=== PATIENT | male | born 1945 | race American Indian/Alaskan Native ===

== ENCOUNTER 2018-09-05 12:57 | Inpatient (IN) | payer MEDICARE, OTHER ==
--- NOTE | 2018-09-05 13:36 | Anesthesia Consultation ---
Anesthesia Consult and Med Hx Date of service: 09/05/18 - Airway Anesthetic Teeth Evaluation: Good ROM Head & Neck: Adequate Mental/Hyoid Distance: Adequate Mallampati Class: Class II Intubation Access Assessment: Probably Good - Pulmonary Exam CTA: Yes - Cardiac Exam Anesthetic Concerns: slightly irregular heart rate with 2/6 systolic murmur. Pt states his blood pressure is prone to drop precipitously with BP meds. - Pre-Operative Health Status ASA Pre-Surgery Classification: ASA4 Proposed Anesthetic Plan: General - Pulmonary Hx Smoking: Yes (STOPPED 1973) Hx Sleep Apnea: No (EZ PRE SCREEN HIGH RISK) - Cardiovascular System Hx Hypertension: Yes (X 15 YRS) Hx Heart Murmur: Yes (2/6 systolic) Hx Peripheral Vascular Disease: Yes (? LEGS) - Endocrine Hx End Stage Renal Disease: Yes (Had vas cath dialysis 09/04/18) Hx Cirrhosis: Yes (7 YRS AGO- RESOLVED WITH MEDS (ALCOHOL INDUCED)) Hx Non-Insulin Dependent Diabetes: Yes (Mainly diet controlled. Ocassionally takes tradjenta.) - Hematic Hx Anemia: Yes - Other Systems Hx Alcohol Use: Yes (DRY X 10 YRS (HAS CIRRHOSIS))
--- NOTE | 2018-09-05 13:43 | Anesthesia Day of Surgery ---
Anesthesia Day of Surgery - Day of Surgery Patient Examined: Yes Patient H&P Reviewed: Yes Patient is NPO: Yes Beta Blockers: Yes (last dose 09/05/18)
--- NOTE | 2018-09-05 13:59 | Short Stay Summary ---
Short Stay Documentation Date of service: 09/12/18 - History H&P: obtained from office - Allergies and Medications Current Medications: Allergies tamsulosin [From Flomax] Allergy (Verified 08/29/18 17:57) Rash Home Medications Medication Instructions Recorded Confirmed Last Taken Type Bicalutamide [Casodex] 50 mg PO DAILY 08/29/18 08/29/18 Unknown History Hydralazine HCl 50 mg PO BID 08/29/18 08/29/18 Unknown History ISOSORBIDE MONOnitrate [Imdur ER] 30 mg PO DAILY 08/29/18 08/29/18 Unknown History Labetalol [Labetalol 100mg TAB] 100 mg PO BID 08/29/18 08/29/18 Unknown History Lanthanum Carbonate [Fosrenol] 500 mg PO TIDWM 08/29/18 08/29/18 Unknown History Linagliptin [Tradjenta] 5 mg PO PRN PRN 08/29/18 08/29/18 Unknown History Minoxidil [Loniten] 2.5 mg PO PRN PRN 08/29/18 08/29/18 Unknown History Active Medications Famotidine (Pepcid) 20 mg IV PREOP NR Stop: 09/05/18 23:59 Sodium Chloride (Nacl 0.9% 1000 Ml) 1,000 mls @ 100 mls/hr IV DIRECT TYLER - Brief post op/procedure progress note Date of procedure: 09/05/18 Pre-op diagnosis: Gross hematuria , h/o prostate ca Post-op diagnosis: same Anesthesia: GETA Surgeon: SAMANTHA ROSARIO Estimated blood loss: minimal Condition: stable - Hospital course Hospital course: orpacuhome - Disposition Condition at discharge: Good Disposition: DC-01 TO HOME OR SELFCARE Short Stay Discharge Plan Activity: advance as tolerated Diet: advance as tolerated Follow up with: SAMANTHA ROSARIO MD [Staff Physician] - 7 Days
[2018-09-05] MEDS ORDERED: PEPCID IV NR (14:00)
[2018-09-05] MEDS: NACL 0.9% 1000 ML 1,000 ML IV SCH (14:01)
[2018-09-05] MEDS ORDERED: ceFAZolin 2 GM in NACL 0.9% 100 ML IV SCH (14:15)
[2018-09-05] MEDS ORDERED: DIPRIVAN 10 MG/ML IV ONE (14:29)
[2018-09-05] MEDS ORDERED: SUBLIMAZE ONE ×2 (14:29→16:11)
[2018-09-05] MEDS ORDERED: AMIDATE IV ONE (14:43)
[2018-09-05] MEDS ORDERED: XYLOCAINE MPF 2% ONE (14:43)
[2018-09-05] MEDS ORDERED: NACL 0.9% 500 ML 500 ML IV ONE (15:11)
[2018-09-05] MEDS ORDERED: WATER FOR IRRIG STERILE IR ONE (15:45)
--- NOTE | 2018-09-05 15:59 | Post Operative Note ---
Pre-op diagnosis: Chronic Hematuria / RAD Cystits / CaP / ESRD / Anemia Post-op diagnosis: same Findings: mod diffuse erythema bladder throughtout Procedure: cysto rpg fulg bleeding Anesthesia: GETA Surgeon: SAMANTHA ROSARIO Estimated blood loss: minimal Pathology: list (bladder bx x3) Specimen disposition: to lab Condition: stable Disposition: PACU
[2018-09-05] MEDS ORDERED: PROVENTIL IH PRN (16:07)
[2018-09-05] MEDS ORDERED: ZOFRAN IV PRN ×4 (16:07→16:22)
[2018-09-05] MEDS ORDERED: SODIUM CHLORIDE FLUSH SYRINGE 10 ML IV PRN (16:07)
[2018-09-05] MEDS ORDERED: TYLENOL PO PRN (16:07)
--- NOTE | 2018-09-05 16:07 | History and Physical Report ---
History of Present Illness Chief complaint: Im doing OK. History of present illness: 73 YO Male with HTN, ESED on HD (M,W,F), Nicotine Dependence, DM, ETOH Cirrhosis, Anemia, PVD S/P Cystoscopy admitted directly at the request of Dr. Renee for postoperative anemia. Pt seen and evaluated upon arrival to his room. Pt resting comfortably in bed. Pt denies pain. Pt found to have ESRD complicated by blood loss anemia. Pt transfused with PRBC. Pt denies fever, chills, CP, Palpitations, NVD, Trauma, BRBPR, productive cough, or recent ill contacts. No reported nursing events. Past History Past Medical History: diabetes, ESRD, hypertension Past Surgical History: Other (Cysto) Social history: , lives with family, smoking Family history: diabetes, hypertension Medications and Allergies Allergies Allergy/AdvReac Type Severity Reaction Status Date / Time tamsulosin [From Flomax] Allergy Rash Verified 08/29/18 17:57 Home Medications Medication Instructions Recorded Confirmed Last Taken Type Bicalutamide [Casodex] 50 mg PO DAILY 08/29/18 09/06/18 09/04/18 09:30 History Hydralazine HCl 50 mg PO BID 08/29/18 09/06/18 09/04/18 21:30 History ISOSORBIDE MONOnitrate [Imdur ER] 30 mg PO DAILY 08/29/18 09/06/18 09/05/18 History 30mg Labetalol [Labetalol 100mg TAB] 100 mg PO BID 08/29/18 09/06/18 09/05/18 08:00 History Lanthanum Carbonate [Fosrenol] 500 mg PO TIDWM 08/29/18 09/06/18 09/05/18 History Linagliptin [Tradjenta] 5 mg PO PRN PRN 08/29/18 08/29/18 Unknown History Minoxidil [Loniten] 2.5 mg PO PRN PRN 08/29/18 09/06/18 07/26/18 History HYDROcodone/APAP 5-325 [[place] 1 each PO Q6HR PRN #25 tablet 09/06/18 Unknown Rx 5-325 mg TAB] Active Meds: Active Medications Famotidine (Pepcid) 20 mg IV PREOP NR Stop: 09/05/18 23:59 Last Admin: 09/05/18 14:01 Dose: 20 mg Documented by: Sodium Chloride (Nacl 0.9% 1000 Ml) 1,000 mls @ 100 mls/hr IV DIRECT TYLER Last Admin: 09/05/18 14:01 Dose: 100 mls/hr Documented by: Cefazolin Sodium 2 gm/ Sodium (Chloride) 100 mls @ 200 mls/hr IV PREOP TYLER; Protocol Review of Systems Constitutional: no weight loss, no weight gain, no fever, no chills Ears, nose, mouth and throat: no ear pain, no ear discharge, no tinnitis, no decreased hearing, no nose pain Cardiovascular: no chest pain, no orthopnea, no palpitations, no rapid/irregular heart beat, no edema Respiratory: no cough, no cough with sputum, no excessive sputum, no hemoptysis, no dyspnea on exertion Gastrointestinal: no nausea, no vomiting, no diarrhea, no constipation Genitourinary Male: no hematuria, no flank pain, no discharge, no urinary frequency, no urinary hesitancy Rectal: no pain, no incontinence, no bleeding Musculoskeletal: no neck stiffness, no neck pain, no shooting arm pain, no arm numbness/tingling, no low back pain, no shooting leg pain Integumentary: no rash, no pruritis, no redness, no sores, no wounds Neurological: no paralysis, no weakness, no parathesias, no numbness, no tingling Psychiatric: no anxiety, no memory loss, no change in sleep habits, no sleep disturbances, no insomnia, no hypersomnia, no hallucinations Endocrine: no cold intolerance, no heat intolerance, no polyphagia, no excessive thirst, no polydipsia, no polyuria, no nocturia Hematologic/Lymphatic: no easy bruising, no easy bleeding Allergic/Immunologic: no urticaria, no allergic rhinitis, no wheezing Exam - Constitutional Vitals: Temp Pulse Resp BP Pulse Ox 98.5 F 77 16 135/74 99 09/05/18 13:40 09/05/18 13:40 09/05/18 13:40 09/05/18 13:40 09/05/18 13:40 General appearance: Present: no acute distress, well-nourished - EENT Eyes: Present: PERRL ENT: hearing intact, clear oral mucosa - Neck Neck: Present: supple, normal ROM - Respiratory Respiratory effort: normal Respiratory: bilateral: CTA - Cardiovascular Heart Sounds: Present: S1 & S2. Absent: rub, click - Extremities Extremities: pulses symmetrical, No edema Peripheral Pulses: within normal limits - Abdominal General gastrointestinal: Present: soft, non-tender, non-distended, normal bowel sounds Male genitourinary: Present: normal - Integumentary Integumentary: Present: clear, warm, dry - Musculoskeletal Musculoskeletal: gait normal, strength equal bilaterally - Psychiatric Psychiatric: appropriate mood/affect, intact judgment & insight - Neurologic Neurologic: CNII-XII intact, moves all extremities Results - Labs CBC & Chem 7: 09/07/18 05:42 09/06/18 04:21 Labs: Abnormal lab results 09/05/18 09/05/18 09/05/18 Range/Units 14:01 14:21 14:30 POC Hgb 7.1 L (12-17) POC Hct 21 L (38-51) POC Potassium 3.4 L (3.5-4.9) POC BUN 30 H (8-26) mg/dl POC Glucose 111 H (70-105) Crossmatch See Detail Assessment and Plan - Patient Problems (1) ESRD (end stage renal disease) Current Visit: Yes Status: Acute Plan to address problem: Nephrology consulted as per consulting surgical team, dialysis as per renal team, strict I/o, daily weight, monitor uop, q shift, avoid nephrotoxic agents, (2) HTN (hypertension) Current Visit: Yes Status: Acute Qualifiers: Hypertension type: essential hypertension Qualified Code(s): I10 - Essential (primary) hypertension Plan to address problem: Monitor BP w shift, continue medical management (3) Diabetes Current Visit: Yes Status: Acute Plan to address problem: ADA diet, insulin, accu check (4) Anemia Current Visit: Yes Status: Acute Plan to address problem: Postop Anemia: PRBC transfusion, supportive care. (5) Nicotine dependence Current Visit: Yes Status: Acute Qualifiers: Nicotine product type: unspecified Plan to address problem: smoking cessation counseling, supportive care, (6) DVT prophylaxis Current Visit: Yes Status: Acute Plan to address problem: SCD to BLE while in bed, Pt ambulating
[2018-09-05] MEDS ORDERED: SUBLIMAZE IV PRN (16:11)
[2018-09-05] MEDS: SUBLIMAZE IV PRN ×2 (16:15→16:35)
[2018-09-05] MEDS ORDERED: NACL 0.9% 500 ML 500 ML ONE (16:56)
--- NOTE | 2018-09-05 17:51 | Post Anesthesia Evaluation ---
- Post Anesthesia Evaluation Patient Participated: Yes Airway Patent: Yes Stable Respiratory Function: Yes Nausea/Vomiting: No Temp > 96.8F: Yes Pain Manageable: Yes Adequeate Hydration: Yes Anesthesia Complications: No
[2018-09-05] MEDS: NACL 0.9% IR SCH ×3 (19:45→23:50)
[2018-09-06] MEDS: NACL 0.9% IR SCH ×3 (01:30→08:16)
[2018-09-06] MEDS: PERCOCET 5/325 PO PRN ×3 (01:30→20:36)
[2018-09-06 05:14] LABS: Basophils # (Auto) 0.1 K/mm3 (0.0-0.1); Basophils % (Auto) 1.2 % (0.0-1.8); Eosinophils # (Auto) 0.1 K/mm3 (0.0-0.4); Eosinophils % (Auto) 1.6 % (0.0-4.3); Hematocrit 25.4 % (35.5-45.6); Hemoglobin 8.5 gm/dl (11.8-15.2); Lymphocytes # (Auto) 0.8 K/mm3 (1.2-5.4); Lymphocytes % (Auto) 20.2 % (13.4-35.0); Mean Corpuscular HGB Conc 34 % (32-34); Mean Corpuscular Volume 88 fl (84-94); Monocytes # (Auto) 0.3 K/mm3 (0.0-0.8); Monocytes % (Auto) 7.9 % (0.0-7.3); Platelet Count 179 K/mm3 (140-440); Red Blood Count 2.88 M/mm3 (3.65-5.03); Red Cell Distribution Width 14.8 % (13.2-15.2)
[2018-09-06] MEDS: MORPHINE IV PRN (05:37)
[2018-09-06 05:40] LABS: Calcium 8.2 mg/dL (8.4-10.2)
--- NOTE | 2018-09-06 07:48 | Fluoroscopy Report ---
FLUOROSCOPY RETROGRADE UROGRAPHY: HISTORY: Gross hematuria. FINDINGS: Fluoroscopy was provided by radiology during retrograde urography by the urologist. 9 fluoroscopic images were captured. There is adequate filling of the ureters and intrarenal collecting systems with no filling defects or anatomic abnormalities identified. Bladder biopsy was performed per the operative notes. Please correlate with the procedural report if needed. IMPRESSION: Retrograde pyelograms within normal limits.
[2018-09-06] MEDS: SODIUM CHLORIDE FLUSH SYRINGE 10 ML IV SCH (07:50)
[2018-09-06] MEDS: NACL 0.9% 1000 ML 1,000 ML IV SCH (08:08)
--- NOTE | 2018-09-06 11:34 | Progress Note ---
Assessment and Plan Assessment and plan: ESRD. Consult nephrology for hemodialysis today. Chronic gross hematuria. Continue Andrew drip per urology. Radiation cystitis. Patient is status post cystoscopy/RPG/fulguration. Anemia of ESRD. H&H stable. Transfuse as needed. Hypertension. Resume home antihypertensive medications. History of cirrhosis. Stable. History Interval history: This is a 73-year-old male presented with significant past medical history of ESRD, anemia of ESRD, hypertension, prostate CA, diet-controlled diabetes mellitus and history of cirrhosis from EtOH abuse but quit 10 years ago with Chronic gross hematuria. 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 The patient was seen by urology and underwent cystoscopy RPG with fulguration. Patient was noted to have moderate diffuse erythema throughout the bladder. Patient had a Andrew drip postoperatively and was noted to have clear urine. Nephrology consult for hemodialysis. Patient receives Tuesday. 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 No new issues overnight. Hospitalist Physical - Constitutional Vitals: Temp Pulse Resp BP Pulse Ox 97.9 F 56 L 18 149/66 100 09/06/18 08:00 09/06/18 08:00 09/06/18 08:00 09/06/18 08:00 09/06/18 08:08 General appearance: Present: no acute distress, well-nourished - EENT Eyes: Present: PERRL, EOM intact ENT: hearing intact, clear oral mucosa, dentition normal - Neck Neck: Present: supple, normal ROM - Respiratory Respiratory effort: normal Respiratory: bilateral: CTA - Cardiovascular Rhythm: regular Heart Sounds: Present: S1 & S2. Absent: gallop, rub - Extremities Extremities: no ischemia, No edema, Full ROM - Abdominal General gastrointestinal: soft, non-tender, non-distended, normal bowel sounds - Integumentary Integumentary: Present: clear, warm, dry - Neurologic Neurologic: CNII-XII intact, moves all extremities Results - Labs CBC & Chem 7: 09/06/18 00:01 09/06/18 04:21 Labs: Laboratory Last Values WBC 4.1 K/mm3 (4.5-11.0) L 09/06/18 00:01 RBC 2.88 M/mm3 (3.65-5.03) L 09/06/18 00:01 Hgb 8.5 gm/dl (11.8-15.2) L 09/06/18 00:01 POC Hgb 7.1 (12-17) L 09/05/18 14:21 Hct 25.4 % (35.5-45.6) L 09/06/18 00:01 POC Hct 21 (38-51) L 09/05/18 14:21 MCV 88 fl (84-94) 09/06/18 00:01 MCH 30 pg (28-32) 09/06/18 00:01 MCHC 34 % (32-34) 09/06/18 00:01 RDW 14.8 % (13.2-15.2) 09/06/18 00:01 Plt Count 179 K/mm3 (140-440) 09/06/18 00:01 Lymph % (Auto) 20.2 % (13.4-35.0) 09/06/18 00:01 [place] % (Auto) 7.9 % (0.0-7.3) H 09/06/18 00:01 Eos % (Auto) 1.6 % (0.0-4.3) 09/06/18 00:01 Baso % (Auto) 1.2 % (0.0-1.8) 09/06/18 00:01 Lymph # 0.8 K/mm3 (1.2-5.4) L 09/06/18 00:01 [place] # 0.3 K/mm3 (0.0-0.8) 09/06/18 00:01 Eos # 0.1 K/mm3 (0.0-0.4) 09/06/18 00:01 Baso # 0.1 K/mm3 (0.0-0.1) 09/06/18 00:01 Seg Neutrophils % 69.1 % (40.0-70.0) 09/06/18 00:01 Seg Neutrophils # 2.8 K/mm3 (1.8-7.7) 09/06/18 00:01 POC Sodium 143 mmol/L (138-146) 09/05/18 14:21 POC Potassium 3.4 (3.5-4.9) L 09/05/18 14:21 POC Chloride 99 (98-109) 09/05/18 14:21 Sodium 144 mmol/L (137-145) 09/06/18 04:21 Potassium 4.1 mmol/L (3.6-5.0) 09/06/18 04:21 Chloride 101.0 mmol/L (98-107) 09/06/18 04:21 Carbon Dioxide 31 mmol/L (22-30) H 09/06/18 04:21 16 mmol/L 09/06/18 04:21 POC BUN 30 mg/dl (8-26) H 09/05/18 14:21 BUN 33 mg/dL (9-20) H 09/06/18 04:21 5.2 mg/dL (0.8-1.5) H 09/06/18 04:21 Estimated GFR 13 ml/min 09/06/18 04:21 6 % 09/06/18 04:21 Glucose 103 mg/dL (75-100) H 09/06/18 04:21 POC Glucose 112 (70-105) H 09/05/18 17:51 Calcium 8.2 mg/dL (8.4-10.2) L 09/06/18 04:21 Blood Type O NEGATIVE 09/05/18 14:30 Antibody Screen Negative 09/05/18 14:30 Crossmatch See Detail 09/05/18 14:30 Active Medications - Current Medications Current Medications: Generic Name Dose Route Start Last Admin Trade Name Freq PRN Reason Stop Dose Admin Acetaminophen 650 mg 09/05/18 16:07 Tylenol PO Q4H PRN Pain MILD(1-3)/Fever >100.5/HODGES Albuterol 2.5 mg 09/05/18 16:07 Proventil IH Q4HRT PRN Shortness Of Breath Sodium Chloride 1,000 mls @ 100 mls/hr 09/05/18 14:00 09/06/18 08:08 Nacl 0.9% 1000 Ml IV 100 mls/hr DIRECT TYLER Administration Cefazolin Sodium 2 gm/ Sodium 100 mls @ 200 mls/hr 09/05/18 14:15 Chloride IV PREOP TYLER Protocol Morphine Sulfate 2 mg 09/05/18 19:52 09/06/18 05:37 Morphine IV 2 mg Q4H PRN Administration Pain, Moderate (4-6) Ondansetron HCl 4 mg 09/05/18 16:07 Zofran IV Q8H PRN Nausea And Vomiting Oxycodone/Acetaminophen 1 tab 09/05/18 19:50 09/06/18 08:07 Percocet 5/325 PO 1 tab Q6H PRN Administration Pain, Moderate (4-6) Sodium Chloride 10 ml 09/05/18 22:00 09/06/18 07:50 Sodium Chloride Flush Syringe 10 Ml IV 10 ml BID TYLER Administration Sodium Chloride 10 ml 09/05/18 16:07 Sodium Chloride Flush Syringe 10 Ml IV PRN PRN LINE FLUSH Sodium Chloride 2,000 ml 09/05/18 17:00 09/06/18 08:16 Nacl 0.9% IR 2,000 ml DIRECT TYLER Administration
--- NOTE | 2018-09-06 11:56 | Consultation ---
History of Present Illness - Reason for Consult Consult date: 09/06/18 end stage renal disease - History of Present Illness This is a 73 year old male who was referred to the hospital by his Urologist Dr. Renee for management of gross hematuria due to radiation cystitis as he is underwent treatment for Prostate Cancer in 2014. States he noticed blood in his urine since March 2018. Urology onboard and patient has underwent Cystoscopy, Retrograde Pyelogram and Fulgaration with postoperative placement of Andrew drip. Patient has ESRD and is on hemodialysis every ,,S b ut last got HD on Tuesday due to is scheduled procedure on Tuesday. His outpatient Habilitation Assistant is Dr. Beckford and outpatient clinic is [facility]. We are being consulted for management of this patient's ESRD. Past History Past Medical History: ESRD, hypertension, renal failure Past Surgical History: hernia repair, Other (AVF placement, perm-cath placement, prostate procedures) Social history: no significant social history Family history: no significant family history Medications and Allergies Allergies Allergy/AdvReac Type Severity Reaction Status Date / Time tamsulosin [From Flomax] Allergy Rash Verified 08/29/18 17:57 Home Medications Medication Instructions Recorded Confirmed Last Taken Type Bicalutamide [Casodex] 50 mg PO DAILY 08/29/18 09/06/18 09/04/18 09:30 History Hydralazine HCl 50 mg PO BID 08/29/18 09/06/18 09/04/18 21:30 History ISOSORBIDE MONOnitrate [Imdur ER] 30 mg PO DAILY 08/29/18 09/06/18 09/05/18 History 30mg Labetalol [Labetalol 100mg TAB] 100 mg PO BID 08/29/18 09/06/18 09/05/18 08:00 History Lanthanum Carbonate [Fosrenol] 500 mg PO TIDWM 08/29/18 09/06/18 09/05/18 History Linagliptin [Tradjenta] 5 mg PO PRN PRN 08/29/18 08/29/18 Unknown History Minoxidil [Loniten] 2.5 mg PO PRN PRN 08/29/18 09/06/18 07/26/18 History Active Meds: Active Medications Acetaminophen (Tylenol) 650 mg PO Q4H PRN PRN Reason: Pain MILD(1-3)/Fever >100.5/HODGES Albuterol (Proventil) 2.5 mg IH Q4HRT PRN PRN Reason: Shortness Of Breath Sodium Chloride (Nacl 0.9% 1000 Ml) 1,000 mls @ 100 mls/hr IV DIRECT TYLER Last Admin: 09/06/18 08:08 Dose: 100 mls/hr Documented by: Cefazolin Sodium 2 gm/ Sodium (Chloride) 100 mls @ 200 mls/hr IV PREOP TYLER; Protocol Morphine Sulfate (Morphine) 2 mg IV Q4H PRN PRN Reason: Pain, Moderate (4-6) Last Admin: 09/06/18 05:37 Dose: 2 mg Documented by: Ondansetron HCl (Zofran) 4 mg IV Q8H PRN PRN Reason: Nausea And Vomiting Oxycodone/Acetaminophen (Percocet 5/325) 1 tab PO Q6H PRN PRN Reason: Pain, Moderate (4-6) Last Admin: 09/06/18 08:07 Dose: 1 tab Documented by: Sodium Chloride (Sodium Chloride Flush Syringe 10 Ml) 10 ml IV BID TYLER Last Admin: 09/06/18 07:50 Dose: 10 ml Documented by: Sodium Chloride (Sodium Chloride Flush Syringe 10 Ml) 10 ml IV PRN PRN PRN Reason: LINE FLUSH Sodium Chloride (Nacl 0.9%) 2,000 ml IR DIRECT TYLER Last Admin: 09/06/18 08:16 Dose: 2,000 ml Documented by: Review of Systems Constitutional: fatigue, weakness, no weight loss, no weight gain, no fever, no chills, no sweats Ears, nose, mouth and throat: no ear pain, no ear discharge, no tinnitis, no decreased hearing, no nose pain, no nasal congestion, no nasal discharge Cardiovascular: no chest pain, no orthopnea, no palpitations, no rapid/irregular heart beat, no edema, no syncope, no lightheadedness, no shortness of breath Respiratory: no cough, no cough with sputum, no excessive sputum, no hemoptysis, no shortness of breath, no dyspnea on exertion Gastrointestinal: no nausea, no vomiting, no diarrhea, no constipation, no change in bowel habits, no hematemesis Genitourinary Male: dysuria, hematuria Musculoskeletal: no neck stiffness, no neck pain, no shooting arm pain, no arm numbness/tingling Integumentary: no rash, no pruritis, no redness, no sores, no wounds Neurological: weakness, no transient paralysis, no paralysis, no parathesias, no numbness, no tingling, no seizures Psychiatric: no anxiety, no memory loss, no change in sleep habits, no sleep disturbances, no insomnia, no hypersomnia, no change in appetite Endocrine: no cold intolerance, no heat intolerance, no polyphagia, no excessive thirst, no polydipsia, no polyuria Hematologic/Lymphatic: no easy bruising, no lymphadenopathy Exam - Vital Signs Vital signs: Vital Signs Temp Pulse Resp BP Pulse Ox 98.5 F 77 16 135/74 99 09/05/18 13:35 09/05/18 13:35 09/05/18 13:35 09/05/18 13:35 09/05/18 13:35 - General Appearance General appearance: well-developed, appears stated age, fatigue EENT: ATNC, PERRL, hearing intact, vision intact Neck: Present: neck supple, trachea midline Respiratory: Clear to Ascultation Heart: regular, S1S2 Gastrointestinal: Present: normoactive bowel sounds Integumentary: warm and dry Neurologic: alert and oriented x3 Musculoskeletal: Present: other (Has right IJ perm-catheter. Has Left AVF placed 1 month ago. No edema) Results - Lab Results 09/06/18 00:01 09/06/18 04:21 Most recent lab results Calcium 8.2 mg/dL (8.4-10.2) L 09/06/18 04:21 Assessment and Plan End Stage Renal Disease: -Hemodialysis today for UF and clereance -Fluid restriction of 1 liter per day -Right IJ perm-catheter in use for HD -Left AVF placed 1 month ago, maturing -Renal/Dialysis diet -Obtain daily weights -Monitor I/O's -Assess dialysis needs daily Anemia, Multifactorial: -Secondary to ESRD and Radiation Cystitis -Start Epogen 20,000 units with HD -Transfuse if HGB<7.0 -Monitor H/H Gross Hematuria secondary to due to radiation cystitis: -S/P Cystoscopy, Retrograde Pyelogram and Fulgaration on 09/05/18 -S/P postoperative placement of Andrew drip -As per Urology Hypertension: -Reconcile home medications -Recommend D/C NS in this ESRD patient
[2018-09-06] MEDS ORDERED: PROCRIT IV PRN (13:40)
[2018-09-06] MEDS ORDERED: NACL 0.9% 1,000 ML IR ONE ×2 (14:04→17:25)
[2018-09-06 15:57] LABS: Hepatitis C Virus Antibody Reactive (NonReactive)
[2018-09-06 17:05] LABS: Hepatitis B Surface Antigen Non-Reactive (Negative)
--- NOTE | 2018-09-06 18:50 | Progress Note ---
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 - suspect rad cystits - pt declined any intravsical tx including ALum, disc risks including neurotoxicity - monitor overnight patient just finished dialysis, - extensive discussion on options including removal of catheter trial they understand and lean towards keeping in - Rx for hydrocone on chart - OK to d/c home tomorrow if doing ok Subjective Date of service: 09/06/18 Interval history: some spasms just fin dialyss Objective - Constitutional Vitals: Vital Signs - 12hr 09/06/18 09/06/18 09/06/18 08:00 08:08 14:45 Temperature 97.9 F 98.3 F Pulse Rate 56 L 61 Respiratory 18 16 Rate Blood Pressure 164/80 Blood Pressure 149/66 [Left] O2 Sat by Pulse 100 Oximetry 09/06/18 09/06/18 09/06/18 15:00 15:15 15:30 Temperature Pulse Rate 54 L 54 L 55 L Respiratory Rate Blood Pressure 164/80 166/81 171/79 Blood Pressure [Left] O2 Sat by Pulse Oximetry 09/06/18 09/06/18 09/06/18 15:45 16:00 16:15 Temperature Pulse Rate 54 L 56 L 57 L Respiratory Rate Blood Pressure 158/76 163/82 161/76 Blood Pressure [Left] O2 Sat by Pulse Oximetry 09/06/18 09/06/18 09/06/18 16:30 16:45 17:00 Temperature Pulse Rate 63 60 62 Respiratory Rate Blood Pressure 169/77 158/73 164/74 Blood Pressure [Left] O2 Sat by Pulse Oximetry 09/06/18 17:15 Temperature Pulse Rate 64 Respiratory Rate Blood Pressure 180/81 Blood Pressure [Left] O2 Sat by Pulse Oximetry - Respiratory Respiratory effort: normal - Gastrointestinal Rectal Exam: other ( clear in tube) - Labs CBC & Chem 7: 09/07/18 05:42 09/07/18 05:42 Labs: Abnormal lab results 09/05/18 09/06/18 09/06/18 Range/Units 14:30 00:01 04:21 WBC 4.1 L (4.5-11.0) K/mm3 RBC 2.88 L (3.65-5.03) M/mm3 Hgb 8.5 L (11.8-15.2) gm/dl Hct 25.4 L (35.5-45.6) % [place] % (Auto) 7.9 H (0.0-7.3) % Lymph # 0.8 L (1.2-5.4) K/mm3 Carbon Dioxide 31 H (22-30) mmol/L BUN 33 H (9-20) mg/dL Creatinine 5.2 H (0.8-1.5) mg/dL Glucose 103 H (75-100) mg/dL Calcium 8.2 L (8.4-10.2) mg/dL Hepatitis C Antibody (NonReactive) Crossmatch See Detail 09/06/18 Range/Units 14:55 WBC (4.5-11.0) K/mm3 RBC (3.65-5.03) M/mm3 Hgb (11.8-15.2) gm/dl Hct (35.5-45.6) % [place] % (Auto) (0.0-7.3) % Lymph # (1.2-5.4) K/mm3 Carbon Dioxide (22-30) mmol/L BUN (9-20) mg/dL Creatinine (0.8-1.5) mg/dL Glucose (75-100) mg/dL Calcium (8.4-10.2) mg/dL Hepatitis C Antibody Reactive A (NonReactive) Crossmatch Medications & Allergies - Medications Allergies/Adverse Reactions: Allergies tamsulosin [From Flomax] Allergy (Verified 08/29/18 17:57) Rash Home Medications: Home Medications Medication Instructions Recorded Confirmed Last Taken Type Bicalutamide [Casodex] 50 mg PO DAILY 08/29/18 09/06/18 09/04/18 09:30 History Hydralazine HCl 50 mg PO BID 08/29/18 09/06/18 09/04/18 21:30 History ISOSORBIDE MONOnitrate [Imdur ER] 30 mg PO DAILY 08/29/18 09/06/18 09/05/18 History 30mg Labetalol [Labetalol 100mg TAB] 100 mg PO BID 08/29/18 09/06/18 09/05/18 08:00 History Lanthanum Carbonate [Fosrenol] 500 mg PO TIDWM 08/29/18 09/06/18 09/05/18 History Linagliptin [Tradjenta] 5 mg PO PRN PRN 08/29/18 08/29/18 Unknown History Minoxidil [Loniten] 2.5 mg PO PRN PRN 08/29/18 09/06/18 07/26/18 History HYDROcodone/APAP 5-325 [[place] 1 each PO Q6HR PRN #25 tablet 09/06/18 Unknown Rx 5-325 mg TAB] Active Medications: Generic Name Dose Route Start Last Admin Trade Name Freq PRN Reason Stop Dose Admin Acetaminophen 650 mg 09/05/18 16:07 Tylenol PO Q4H PRN Pain MILD(1-3)/Fever >100.5/HODGES Albuterol 2.5 mg 09/05/18 16:07 Proventil IH Q4HRT PRN Shortness Of Breath Epoetin Karan 20,000 unit 09/06/18 13:40 09/06/18 17:49 Procrit IV 20,000 unit ZANE PRN Administration hemodialysis Sodium Chloride 1,000 mls @ 100 mls/hr 09/05/18 14:00 09/06/18 08:08 Nacl 0.9% 1000 Ml IV 100 mls/hr DIRECT TYLER Administration Cefazolin Sodium 2 gm/ Sodium 100 mls @ 200 mls/hr 09/05/18 14:15 Chloride IV PREOP [facility] Protocol Morphine Sulfate 2 mg 09/05/18 19:52 09/06/18 05:37 Morphine IV 2 mg Q4H PRN Administration Pain, Moderate (4-6) Ondansetron HCl 4 mg 09/05/18 16:07 Zofran IV Q8H PRN Nausea And Vomiting Oxybutynin Chloride 5 mg 09/06/18 20:00 Ditropan PO TID TYLER Oxycodone/Acetaminophen 1 tab 09/05/18 19:50 09/06/18 08:07 Percocet 5/325 PO 1 tab Q6H PRN Administration Pain, Moderate (4-6) Sodium Chloride 10 ml 09/05/18 22:00 09/06/18 07:50 Sodium Chloride Flush Syringe 10 Ml IV 10 ml BID TYLER Administration Sodium Chloride 10 ml 09/05/18 16:07 Sodium Chloride Flush Syringe 10 Ml IV PRN PRN LINE FLUSH Sodium Chloride 2,000 ml 09/05/18 17:00 09/06/18 08:16 Nacl 0.9% IR 2,000 ml DIRECT TYLER Administration
[2018-09-06] MEDS: DITROPAN PO SCH (20:36)
[2018-09-07] MEDS: SODIUM CHLORIDE FLUSH SYRINGE 10 ML IV SCH ×3 (00:33→09:28)
[2018-09-07] MEDS: MORPHINE IV PRN (02:08)
[2018-09-07] MEDS: PERCOCET 5/325 PO PRN (06:32)
[2018-09-07 06:58] LABS: Basophils % (Auto) 0.6 % (0.0-1.8); Eosinophils # (Auto) 0.1 K/mm3 (0.0-0.4); Eosinophils % (Auto) 1.8 % (0.0-4.3); Hemoglobin 9.4 gm/dl (11.8-15.2); Lymphocytes # (Auto) 0.7 K/mm3 (1.2-5.4); Lymphocytes % (Auto) 13.2 % (13.4-35.0); Mean Corpuscular HGB Conc 33 % (32-34); Mean Corpuscular Volume 90 fl (84-94); Monocytes # (Auto) 0.4 K/mm3 (0.0-0.8); Monocytes % (Auto) 6.7 % (0.0-7.3); Platelet Count 171 K/mm3 (140-440); Red Blood Count 3.13 M/mm3 (3.65-5.03); Red Cell Distribution Width 14.9 % (13.2-15.2)
[2018-09-07 07:23] LABS: Calcium 9.2 mg/dL (8.4-10.2)
--- NOTE | 2018-09-07 08:54 | Discharge Summary ---
Providers - Providers Date of Admission: 09/05/18 16:07 Date of discharge: 09/07/18 Attending physician: NATACHA BHARDWAJ 09/06/18 11:36 Consult to Physician [CONS] Routine Comment: CONSULT COMPLETED - ROSSY Consulting Provider: CLEMENT REINA Physician Instructions: Reason For Exam: esrd MWF HD Primary care physician: EMILIANO HUI Hospitalization Reason for admission: hematuria Condition: Good Hospital course: This is a 73-year-old male presented with significant past medical history of ESRD, anemia of ESRD, hypertension, prostate CA, diet-controlled diabetes mellitus and history of cirrhosis from EtOH abuse but quit 10 years ago with Chronic gross hematuria. 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 The patient was seen by urology and underwent cystoscopy RPG with fulguration. Patient was noted to have moderate diffuse erythema throughout the bladder. Patient had a Andrew drip postoperatively and was noted to have clear urine. Nephrology consulted for hemodialysis. Patient receives hemodialysis Tuesday. His outpatient Floor Manager is Dr. Beckford and outpatient clinic is [facility]. The patient received hemodialysis and will be discharged home today. Discharge time 32 minutes. Disposition: DC-01 TO HOME OR SELFCARE Time spent for discharge: 32 Core Measure Documentation - Palliative Care Palliative Care/ Comfort Measures: Not Applicable - Core Measures Any of the following diagnoses?: none Exam - Constitutional Vitals: Temp Pulse Resp BP Pulse Ox 98.1 F 62 20 146/63 99 09/07/18 04:47 09/07/18 04:47 09/07/18 04:47 09/07/18 04:47 09/07/18 08:09 General appearance: Present: no acute distress, well-nourished - EENT Eyes: Present: PERRL ENT: hearing intact, clear oral mucosa - Neck Neck: Present: supple, normal ROM - Respiratory Respiratory effort: normal Respiratory: bilateral: CTA - Cardiovascular Heart Sounds: Present: S1 & S2. Absent: rub, click - Extremities Extremities: pulses symmetrical, No edema Peripheral Pulses: within normal limits - Abdominal General gastrointestinal: Present: soft, non-tender, non-distended, normal bowel sounds Male genitourinary: Present: normal - Integumentary Integumentary: Present: clear, warm, dry - Musculoskeletal Musculoskeletal: gait normal, strength equal bilaterally - Psychiatric Psychiatric: appropriate mood/affect, intact judgment & insight - Neurologic Neurologic: CNII-XII intact, moves all extremities Plan Activity: no restrictions Weight Bearing Status: Full Weight Bearing Diet: renal Follow up with: SAMANTHA ROSARIO MD [Staff Physician] - 7 Days Prescriptions: HYDROcodone/APAP 5-325 [[place] 5-325 mg TAB] 1 each PO Q6HR PRN #25 tablet PRN Reason: Pain
[2018-09-07] MEDS: DITROPAN PO SCH ×2 (09:28→13:00)
[2018-09-07] MEDS ORDERED: SENOKOT PO PRN (13:00)
--- NOTE | 2018-09-07 14:10 | Progress Note ---
Assessment and Plan End Stage Renal Disease: -HD again today, pt does HD as outpatient TTS, can be discharged from renal standpoint post HD -Fluid restriction of 1 liter per day -Right IJ perm-catheter in use for HD -Left AVF placed 1 month ago, maturing -Renal/Dialysis diet -Obtain daily weights -Monitor I/O's -Assess dialysis needs daily Anemia, Multifactorial: -Secondary to ESRD and Radiation Cystitis -Start Epogen 20,000 units with HD -Transfuse if HGB<7.0 -Monitor H/H Gross Hematuria secondary to due to radiation cystitis: -S/P Cystoscopy, Retrograde Pyelogram and Fulgaration on 09/05/18 -S/P postoperative placement of Andrew drip -As per Urology Hypertension: -Reconcile home medications -Recommend D/C NS in this ESRD patient Subjective Date of service: 09/07/18 Principal diagnosis: ESRD on HD Interval history: tolerated HD well yesterday Objective - Vital Signs Vital signs: Vital Signs - 12hr 09/07/18 09/07/18 09/07/18 04:47 07:56 08:09 Temperature 98.1 F 97.7 F Pulse Rate 62 79 Respiratory 20 18 Rate Blood Pressure 146/63 153/78 O2 Sat by Pulse 100 98 99 Oximetry - General Appearance General appearance: well-developed, well-nourished, appears stated age EENT: ATNC, PERRL, mucous membranes moist Neck: no JVD, no carotid bruit Respiratory: Present: Clear to Ascultation. Absent: Rales, Ronchi Cardiology: regular, S1S2 Gastrointestinal: normoactive bowel sounds, no tenderness, no distended Integumentary: no rash, warm and dry Neurologic: no focal deficit, no asterixis, alert and oriented x3 Musculoskeletal: other (trace pitting edema in BLE) - Lab 09/07/18 05:42 09/07/18 05:42 Most recent lab results Calcium 9.2 mg/dL (8.4-10.2) 09/07/18 05:42 Phosphorus 3.40 mg/dL (2.5-4.5) 09/07/18 05:42 Medications & Allergies - Medications Allergies/Adverse Reactions: Allergies tamsulosin [From Flomax] Allergy (Verified 08/29/18 17:57) Rash Home Medications: Home Medications Medication Instructions Recorded Confirmed Last Taken Type Bicalutamide [Casodex] 50 mg PO DAILY 08/29/18 09/06/18 09/04/18 09:30 History Hydralazine HCl 50 mg PO BID 08/29/18 09/06/18 09/04/18 21:30 History ISOSORBIDE MONOnitrate [Imdur ER] 30 mg PO DAILY 08/29/18 09/06/18 09/05/18 History 30mg Labetalol [Labetalol 100mg TAB] 100 mg PO BID 08/29/18 09/06/18 09/05/18 08:00 History Lanthanum Carbonate [Fosrenol] 500 mg PO TIDWM 08/29/18 09/06/18 09/05/18 History Linagliptin [Tradjenta] 5 mg PO PRN PRN 08/29/18 08/29/18 Unknown History Minoxidil [Loniten] 2.5 mg PO PRN PRN 08/29/18 09/06/18 07/26/18 History HYDROcodone/APAP 5-325 [[place] 1 each PO Q6HR PRN #25 tablet 09/06/18 Unknown Rx 5-325 mg TAB] Active Medications: Generic Name Dose Route Start Last Admin Trade Name Freq PRN Reason Stop Dose Admin Acetaminophen 650 mg 09/05/18 16:07 Tylenol PO Q4H PRN Pain MILD(1-3)/Fever >100.5/HODGES Albuterol 2.5 mg 09/05/18 16:07 Proventil IH Q4HRT PRN Shortness Of Breath Epoetin Karan 20,000 unit 09/06/18 13:40 09/06/18 17:49 Procrit IV 20,000 unit ZANE PRN Administration hemodialysis Sodium Chloride 1,000 mls @ 100 mls/hr 09/05/18 14:00 09/07/18 00:33 Nacl 0.9% 1000 Ml IV Infused DIRECT TYLER Infusion Cefazolin Sodium 2 gm/ Sodium 100 mls @ 200 mls/hr 09/05/18 14:15 Chloride IV PREOP TYLER Protocol Morphine Sulfate 2 mg 09/05/18 19:52 09/07/18 02:08 Morphine IV 2 mg Q4H PRN Administration Pain, Moderate (4-6) Ondansetron HCl 4 mg 09/05/18 16:07 Zofran IV Q8H PRN Nausea And Vomiting Oxybutynin Chloride 5 mg 09/06/18 20:00 09/07/18 13:00 Ditropan PO 5 mg TID TYLER Administration Oxycodone/Acetaminophen 1 tab 09/05/18 19:50 09/07/18 06:32 Percocet 5/325 PO 1 tab Q6H PRN Administration Pain, Moderate (4-6) Senna 8.6 mg 09/07/18 13:00 09/07/18 12:59 Senokot PO 8.6 mg Q12H PRN Administration Laxative Effect Sodium Chloride 10 ml 09/05/18 22:00 09/07/18 09:28 Sodium Chloride Flush Syringe 10 Ml IV 10 ml BID TYLER Administration Sodium Chloride 10 ml 09/05/18 16:07 Sodium Chloride Flush Syringe 10 Ml IV PRN PRN LINE FLUSH Sodium Chloride 2,000 ml 09/05/18 17:00 09/06/18 08:16 Nacl 0.9% IR 2,000 ml DIRECT TYLER Administration
[2018-09-07] MEDS ORDERED: PROCRIT ONE (18:11)
[2018-09-07 18:34] VITALS: BP 157/78
--- NOTE | 2018-09-15 08:34 | Operative Report ---
PREOPERATIVE DIAGNOSES: 1. Gross hematuria 2. Prostate cancer. POSTOPERATIVE DIAGNOSES: 1. Gross hematuria 2. Prostate cancer. PROCEDURE: Cystoscopy, bladder biopsy and fulguration of lesion, evacuation of clot, RPG. SURGEON: Ger Renee MD ANESTHESIA: General. SPECIMENS: Bladder biopsy. FINDINGS: Some bladder erythema with some oozing and oozing near the bladder neck, mild. CLINICAL INDICATIONS: Counseled RCBA, antibiotics, SCDs. The patient is managed at [facility] by urologist there, was seen a few weeks ago, treated by urologist there with cystoscopy, evacuation, has a history of radical prostatectomy and external beam radiation therapy, counseled him on the procedure, desired to proceed. DESCRIPTION OF PROCEDURE: The patient was transferred to OR suite in supine position, anesthesia, dorsal lithotomy, prepped and draped in sterile fashion. A 22-[place] Citizen scope passed. Upon entering the bladder neck, there was some oozing near the bladder neck. Upon entering the bladder, Pancystoscopy with 30 and 70 degree lens was performed after evacuation and before evacuation of clots, no tumors identified. Clots were evacuated from the bladder. Bladder did clear up some, left UO, cannulated 8-[place] Citizen cone-tipped catheter, contrast injected. Normal left distal ureter, proximal ureter, renal pelvis calices. No filling defects or hydronephrosis. Repeated on the opposing right side with similar normal findings. Bladder inspected again with a biopsy forceps passed. Biopsies were taken through the bladder and sent for pathology and surrounding area was cauterized. Bladder irrigated some more. A 24-[place] Citizen 3-way catheter placed. Balloon inflated to 45 mL. Bladder drained. Exam under anesthesia, bilateral descended testicles, no masses. The patient awakened and transferred to PACU in good and stable condition. JOB# [id number] ATS/NTS
== END 2018-09-07 20:20 | disposition home or self-care (01) | DRG 668 ==
LOC: OR 12:57 → 3A 16:07 → 3B-SURG 17:29
PROVIDERS: ADMIT Internal Medicine; ATTEND Hospitalist
PROC: 0TBB8ZX Excision of Bladder, Via Natural or Artificial Opening Endoscopic, Diagnostic (ICD-10-PCS; principal; 2018-09-05)
PROC: 0T5B8ZZ Destruction of Bladder, Via Natural or Artificial Opening Endoscopic (ICD-10-PCS; 2018-09-05)
PROC: 30233N1 Transfusion of Nonautologous Red Blood Cells into Peripheral Vein, Percutaneous Approach (ICD-10-PCS; 2018-09-05)
PROC: BT141ZZ Fluoroscopy of Kidneys, Ureters and Bladder using Low Osmolar Contrast (ICD-10-PCS; 2018-09-05)
PROC: 5A1D70Z Performance of Urinary Filtration, Intermittent, Less than 6 Hours Per Day (ICD-10-PCS; 2018-09-06)
PROC: 5A1D70Z Performance of Urinary Filtration, Intermittent, Less than 6 Hours Per Day (ICD-10-PCS; 2018-09-07)
DX: N30.41 Irradiation cystitis with hematuria (principal); N18.6 End stage renal disease; I12.0 Hypertensive chronic kidney disease with stage 5 chronic kidney disease or end stage renal disease; E11.22 Type 2 diabetes mellitus with diabetic chronic kidney disease; D63.1 Anemia in chronic kidney disease; R31.0 Gross hematuria; C61 Malignant neoplasm of prostate; K70.30 Alcoholic cirrhosis of liver without ascites; Z88.8 Allergy status to other drugs, medicaments and biological substances; Z79.899 Other long term (current) drug therapy; Z90.49 Acquired absence of other specified parts of digestive tract; Z87.891 Personal history of nicotine dependence; Z99.2 Dependence on renal dialysis; Z83.3 Family history of diabetes mellitus; Z82.49 Family history of ischemic heart disease and other diseases of the circulatory system; Z71.6 Tobacco abuse counseling; Z79.84 Long term (current) use of oral hypoglycemic drugs
CPT/HCPCS: 36415; 74420; 80048; 80074; 82803; 82962; 84100; 85025; 86850; 86900; 86901; 86920; 88305; 88312; 88342; 94760; G0378; A4217; C1758; C1769; J0885; J2270; J2704; J3010; J7030; J7040; P9016; Q9967

== ENCOUNTER 2020-09-16 09:09 | Emergency (ER) | payer MEDICARE, OTHER ==
--- NOTE | 2020-09-16 10:05 | Emergency Department Report ---
ED General Adult HPI - General Chief complaint: Medical Clearance Stated complaint: NEEDS DIALYSIS Time Seen by Provider: 09/16/20 09:51 Source: patient Mode of arrival: Ambulatory Limitations: No Limitations - History of Present Illness Initial comments: Chief complaint: "My granddaughter dropped the ball. I need dialysis." HPI this is a 75-year-old male with history of end-stage renal disease on home dialysis, hypertension, diabetes mellitus, prostate cancer in remission who requests dialysis treatment. He has required hemodialysis since 2018. 6 weeks ago his granddaughter underwent training for home dialysis. Granddaughter was able to assist with home dialysis for the last week and a half. However, granddaughter plans to move back to her college dorm. Granddaughter will no longer be able to assist with home dialysis. Patient is unable to perform the home dialysis himself. His normal schedule is Tuesday for home dialysis treatment. His last hemodialysis session was Tuesday. He is mostly symptom-free. He had male lightheadedness. He denies palpitation, shortness of breath, chest pain, abdominal pain, fever. His previous home dialysis center is [facility] Nephologist Dr. Beckford [phone] Patient did call his home dialysis center. He is referred to the emergency department. -: Gradual, days(s) (Last hemodialysis session occurred 4 days ago) Severity scale (0 -10): 0 (0 pain 0 symptoms) Consistency: other (No current symptoms) Improves with: none Worsens with: none Associated Symptoms: denies other symptoms Treatments Prior to Arrival: none - Related Data Home Medications Medication Instructions Recorded Confirmed Last Taken Bicalutamide [Casodex] 50 mg PO DAILY 08/29/18 11/18/18 2 Days Ago ~11/16/18 Hydralazine HCl 50 mg PO BID 08/29/18 11/18/18 2 Days Ago ~11/16/18 ISOSORBIDE MONOnitrate [Imdur ER] 30 mg PO DAILY 08/29/18 11/18/18 2 Days Ago ~11/16/18 30 mg Lanthanum Carbonate [Fosrenol] 500 mg PO TIDWM 08/29/18 11/18/18 2 Days Ago ~11/16/18 Linagliptin [Tradjenta] 5 mg PO PRN PRN 08/29/18 11/18/18 2 Days Ago ~11/16/18 labetaloL [Labetalol 100mg TAB] 100 mg PO BID 08/29/18 11/18/18 1 Day Ago ~11/17/18 minoxidiL [Loniten] 2.5 mg PO PRN PRN 08/29/18 11/18/18 2 Days Ago ~11/16/18 Previous Rx's Medication Instructions Recorded Last Taken Type HYDROcodone/APAP 5-325 [[place] 1 each PO Q6HR PRN #25 tablet 09/06/18 2 Days Ago Rx 5-325 mg TAB] ~11/16/18 Allergies Allergy/AdvReac Type Severity Reaction Status Date / Time tamsulosin [From Flomax] Allergy Rash Verified 08/29/18 17:57 ED Review of Systems ROS: Stated complaint: NEEDS DIALYSIS Other details as noted in HPI Comment: All other systems reviewed and negative Constitutional: denies: fever, malaise Respiratory: denies: cough, shortness of breath Gastrointestinal: denies: abdominal pain, nausea, vomiting ED Past Medical Hx - Past Medical History Previous Medical History?: Yes Hx Hypertension: Yes Hx Heart Attack/AMI: No Hx Congestive Heart Failure: (percardial effusion) Hx Diabetes: Yes Hx Deep Vein Thrombosis: No Hx Pulmonary Embolism: No Hx Liver Disease: No Hx Renal Disease: Yes (m,t, th, f) Hx Sickle Cell Disease: No Hx Arthritis: No Hx Kidney Stones: No Hx Asthma: No Hx COPD: No Hx Tuberculosis: No Hx Dementia: No Hx HIV: No Additional medical history: Anemia - Surgical History Past Surgical History?: Yes Hx Coronary Stent: No Hx Open Heart Surgery: No Hx Pacemaker: No Hx Internal Defibrillator: No Hx Cholecystectomy: No Hx Appendectomy: No Hx Breast Surgery: No Additional Surgical History: Graft to left arm. Port of cath to right chest - Social History Smoking Status: Former Smoker - Medications Home Medications: Home Medications Medication Instructions Recorded Confirmed Last Taken Type Bicalutamide [Casodex] 50 mg PO DAILY 08/29/18 11/18/18 2 Days Ago History ~11/16/18 Hydralazine HCl 50 mg PO BID 08/29/18 11/18/18 2 Days Ago History ~11/16/18 ISOSORBIDE MONOnitrate [Imdur ER] 30 mg PO DAILY 08/29/18 11/18/18 2 Days Ago History ~11/16/18 30 mg Lanthanum Carbonate [Fosrenol] 500 mg PO TIDWM 08/29/18 11/18/18 2 Days Ago History ~11/16/18 Linagliptin [Tradjenta] 5 mg PO PRN PRN 08/29/18 11/18/18 2 Days Ago History ~11/16/18 labetaloL [Labetalol 100mg TAB] 100 mg PO BID 08/29/18 11/18/18 1 Day Ago History ~11/17/18 minoxidiL [Loniten] 2.5 mg PO PRN PRN 08/29/18 11/18/18 2 Days Ago History ~11/16/18 HYDROcodone/APAP 5-325 [[place] 1 each PO Q6HR PRN #25 tablet 09/06/18 11/18/18 2 Days Ago Rx 5-325 mg TAB] ~11/16/18 ED Physical Exam - General Limitations: No Limitations General appearance: alert, in no apparent distress, other (Well-appearing nontoxic comfortable) - Head Head exam: Present: atraumatic, normocephalic - Eye Eye exam: Present: normal appearance - ENT ENT exam: Present: mucous membranes moist - Neck Neck exam: Present: normal inspection - Respiratory Respiratory exam: Present: normal lung sounds bilaterally. Absent: respiratory distress - Cardiovascular Cardiovascular Exam: Present: regular rate, normal rhythm. Absent: systolic murmur, diastolic murmur, rubs, gallop - GI/Abdominal GI/Abdominal exam: Present: soft, normal bowel sounds - Rectal Rectal exam: Present: deferred - Extremities Exam Extremities exam: Present: normal inspection, other (Left upper extremity bicep AV fistula positive thrill positive bruit) - Back Exam Back exam: Present: normal inspection - Neurological Exam Neurological exam: Present: alert, oriented X3 - Psychiatric Psychiatric exam: Present: normal affect, normal mood - Skin Skin exam: Present: warm, dry, intact, normal color. Absent: rash ED Course Vital Signs 09/16/20 09:15 Temperature 97.8 F Pulse Rate 67 Respiratory 18 Rate Blood Pressure 182/81 [Right] O2 Sat by Pulse 99 Oximetry ED Medical Decision Making - Lab Data Result diagrams: 09/16/20 10:09/16/20 10:07 - Medical Decision Making Mr. Rudolph is a 75-year-old male with history of end-stage renal disease on hemodialysis. He now requires return to dialysis clinic. He does not have family assistance to continue home dialysis therapy. He is currently symptom- free. CBC within normal limits. Chemistry revealed evidence of end-stage renal disease. However electrolytes all within normal limits including normal potassium. No evidence of acidosis. I spoke with patient's personal asphalt plant operator Dr. Cool He will call his home dialysis center in order to arrange the logistics. The asphalt plant operator acknowledged that this will be a cumbersome process. His personal asphalt plant operator will contact him personally with the proper information. Critical care attestation.: If time is entered above; I have spent that time in minutes in the direct care of this critically ill patient, excluding procedure time. ED Disposition Clinical Impression: End-stage renal disease on hemodialysis Disposition: DC-01 TO HOME OR SELFCARE Is pt being admited?: No Does the pt Need Aspirin: No Condition: Stable Additional Instructions: Please call Dr. Cool for further instructions. Dr. Cool will arrange an appointment time at your home dialysis center in [place].
[2020-09-16 10:49] LABS: Basophils # (Auto) 0.1 K/mm3 (0.0-0.1); Basophils % (Auto) 1.3 % (0.0-1.8); Eosinophils # (Auto) 0.1 K/mm3 (0.0-0.4); Eosinophils % (Auto) 1.6 % (0.0-4.3); Hematocrit 33.4 % (35.5-45.6); Lymphocytes # (Auto) 1.2 K/mm3 (1.2-5.4); Lymphocytes % (Auto) 22.9 % (13.4-35.0); Mean Corpuscular HGB Conc 33 % (32-34); Mean Corpuscular Volume 88 fl (84-94); Monocytes # (Auto) 0.3 K/mm3 (0.0-0.8); Platelet Count 174 K/mm3 (140-440); Red Cell Distribution Width 14.3 % (13.2-15.2)
[2020-09-16 11:05] LABS: Calcium 9.1 mg/dL (8.4-10.2)
[2020-09-16 12:19] VITALS: BP 168/79
== END 2020-09-16 12:18 | disposition home or self-care (01) ==
LOC: ED 09:09
DX: I13.2 Hypertensive heart and chronic kidney disease with heart failure and with stage 5 chronic kidney disease, or end stage renal disease (principal); E11.22 Type 2 diabetes mellitus with diabetic chronic kidney disease; N18.6 End stage renal disease; I50.9 Heart failure, unspecified; Z99.2 Dependence on renal dialysis; Z86.2 Personal history of diseases of the blood and blood-forming organs and certain disorders involving the immune mechanism; Z87.891 Personal history of nicotine dependence; Z79.899 Other long term (current) drug therapy; Z88.8 Allergy status to other drugs, medicaments and biological substances
CPT/HCPCS: 36415; 80048; 85025; 99283